=== PATIENT | female | born 1975 | race Caucasian/White ===

== ENCOUNTER 2018-08-07 18:20 | Emergency (ER) | payer BC, OTHER ==
[~2018-08-07] VITALS: Ht 162.6 cm; Wt 68.0 kg
--- NOTE | 2018-08-07 19:31 | NUR ---
Note undone in EDM - 08/07/18 at 2340 by PALLAVI TO ER BED 5 C/O WEAKNESS, DIZZINESS X 1DAY. PT AA/OX4. RECENT CHILDBIRTH 6MONTHS AGO. NO S/S SOB. SKIN PINK, WARM, DRY. MOVES ALL EXTREMITIES WELL. BRADYCARDIC AT 46 . ALL OTHER VSS. NAD. STABLE CONDITION. WILL CONTINUE TO MONITOR.
--- NOTE | 2018-08-07 19:31 | NUR ---
TO ER BED 5 C/O WEAKNESS, DIZZINESS X 1DAY. PT AA/OX4. RECENT CHILD 8 DAYS AGO. NO S/S SOB. SKIN PINK, WARM, DRY. MOVES ALL EXTREMITIES WELL. BRADYCARDIC AT 46 . ALL OTHER VSS. NAD. STABLE CONDITION. WILL CONTINUE TO MONITOR.
[2018-08-07 19:38] LABS: BASOPHILS % (AUTO) 0.6 % (0.0-2.0); EOSINOPHILS % (AUTO) 1.4 % (0.0-6.0); HEMATOCRIT 34 % (33-45); HEMOGLOBIN 11.7 g/dL (11.5-14.8); LYMPHOCYTES # (AUTO) 1.8 /CMM (0.8-4.8); LYMPHOCYTES % (AUTO) 25.1 % (20.0-44.0); MEAN CORPUSCULAR HGB CONC 35 g/dl (31.0-36.0); MEAN CORPUSCULAR VOLUME 89 fL (82-100); MONOCYTES # (AUTO) 0.4 /CMM (0.1-1.30); NEUTROPHILS # (AUTO) 4.7 /CMM (1.8-8.9); NEUTROPHILS % (AUTO) 66.9 % (43.0-81.0); PLATELET COUNT (AUTO) 319 /CMM (150-450); RED BLOOD CELL COUNT(AUTO) 3.79 MIL/uL (4.0-5.2)
[2018-08-07 19:50] LABS: CALCIUM, SERUM 8.6 mg/dL (8.5-10.1); CARBON DIOXIDE 24 mmol/L (21-32); CHLORIDE 109 mmol/L (98-107); CREATININE 0.8 mg/dL (0.6-1.3); GLUCOSE 82 mg/dL (74-106); POTASSIUM 3.8 mmol/L (3.5-5.1); SODIUM SERUM 141 mmol/L (136-145); UREA NITROGEN, BLOOD 13 mg/dL (7-18)
--- NOTE | 2018-08-07 19:52 | NUR ---
US AT BEDSIDE
[2018-08-07 19:56] LABS: ALANINE AMINOTRANSFERASE 54 U/L (12-78); ALBUMIN 3.1 g/dL (3.4-5.0); ALKALINE PHOSPHATASE 89 U/L (46-116); ASPARTATE AMINOTRANSFERASE 24 U/L (15-37); BILIRUBIN,TOTAL 0.2 mg/dL (0.2-1.0); TOTAL PROTEIN, SERUM 6.6 g/dL (6.4-8.2)
[2018-08-07 19:58] LABS: TROPONIN I < 0.017 ng/mL (0.00-0.056)
[2018-08-07 20:58] LABS: INR 0.96 (0.87-1.13)
--- NOTE | 2018-08-07 21:21 | NUR ---
AMBULATED TO BATHROOM WITH STABLE GAIT
[2018-08-07 21:46] LABS: D-DIMER 3.65 mg/L(FEU (0.17-0.50)
[2018-08-07] MEDS ORDERED: CT SWABBABLE VALVE TRANS SET 1 EA INFUS.SET MC ONE (22:11)
[2018-08-07] MEDS ORDERED: IOHEXOL-350 100 ML VIAL IV ONE (22:11)
[2018-08-07] MEDS ORDERED: IV NS 0.9% 250 ML IV ONE (22:11)
[2018-08-07] MEDS ORDERED: LORAZEPAM INJ 2 MG/ML VIAL ONE (22:24)
[2018-08-07] MEDS ORDERED: LORAZEPAM INJ 2 MG/ML VIAL IV ONE (22:30)
--- NOTE | 2018-08-07 22:30 | NUR ---
SITTING UPRIGHT BREAST FEEDING. FAMILY AT BEDSIDE. NAD. VSS. STABLE CONDITION
--- NOTE | 2018-08-07 22:48 | NUR ---
BROUGHT TO CT
--- NOTE | 2018-08-07 23:38 | NUR ---
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 VELAZQUEZ
--- NOTE | 2018-08-07 23:56 | NUR ---
Patient discharged to home in stable condition. Written and verbal after care instructions given. Patient verbalizes understanding of instruction. IV removed. Catheter intact and site benign. Pressure and 4x4 applied to site. No bleeding noted. AMBULATED WITH STABLE GAIT. INSTRUCTED NOT TO DRIVE OR OPERATE HEAVY MACHINERY
[2018-08-07 23:57] VITALS: BP 122/61
== END 2018-08-07 23:58 | disposition home or self-care (01) ==
LOC: ER 18:22
DX: O99.89 Other specified diseases and conditions complicating pregnancy, childbirth and the puerperium (principal); R00.1 Bradycardia, unspecified; O99.53 Diseases of the respiratory system complicating the puerperium; R06.02 Shortness of breath; O90.81 Anemia of the puerperium; I45.10 Unspecified right bundle-branch block
CPT/HCPCS: 36415; 71045; 71275; 80048; 80076; 84443; 84484; 85025; 85378; 85730; 93005; 93970; 96374; 99285; J2060; J7050; Q9967; A4606; Z7610